=== PATIENT | male | born 1955 | race Caucasian/White ===

== ENCOUNTER 2021-07-07 19:55 | Emergency (ER) | payer BC ==
[2021-07-07] MEDS ORDERED: Aspirin 81 MG Tab.Chew PO ONE (20:05)
[2021-07-07] MEDS ORDERED: Nitroglycerin 0.4 MG Tab.SL SL PRN (20:05)
[2021-07-07] MEDS ORDERED: Losartan 50 MG Tab PO ONE (20:07)
[2021-07-07] MEDS ORDERED: Morphine 4 MG/ML VIAL IVPUSH ONE (20:08)
[2021-07-07 20:58] LABS: BLOOD UREA NITROGEN,BUN 16 mg/dL (7.0-18.0); CHLORIDE,CL 105 mmol/L (98-107); GLUCOSE RANDOM 132 mg/dL (74-106); POTASSIUM,K 3.9 mmol/L (3.5-5.1); SODIUM,NA 143 mmol/L (136-148)
== END 2021-07-07 23:39 | disposition home or self-care (01) ==
LOC: MW.ED 19:55
DX: R07.89 Other chest pain (principal); I10 Essential (primary) hypertension
CPT/HCPCS: 36415; 71045; 80053; 84484; 85025; 93005; 96374; 99285; A9270; J2270